=== PATIENT | male | born 1970 | race Caucasian/White ===

== ENCOUNTER 2021-09-29 05:56 | Emergency (ER) | payer OTHER ==
[2021-09-29 06:25] LABS: HEMOGLOBIN 13.8 gm/dl (14.0-17.5); RED BLOOD COUNT 4.62 M/UL (4.20-5.50); WHITE BLOOD COUNT 8.9 K/UL (4.5-11.0)
[2021-09-29 06:37] LABS: BUN/CREATININE RATIO 17 (0-10)
== END 2021-09-29 08:52 | disposition short-term general hospital (02) ==
LOC: ER1 05:56
PROVIDERS: Emergency Medicine; Family Medicine
DX: I65.1 Occlusion and stenosis of basilar artery (principal); I63.9 Cerebral infarction, unspecified; R53.1 Weakness; Z20.822 Contact with and (suspected) exposure to COVID-19
CPT/HCPCS: 51702; 70450; 70496; 70498; 71045; 80053; 80307; 81001; 82550; 82553; 83605; 83735; 83874; 84484; 85025; 93005; 99285; G0480; Q9967; U0002